=== PATIENT | female | born 1980 | race Caucasian/White ===

== ENCOUNTER 2018-03-10 17:31 | Emergency (ER) | payer OTHER ==
[~2018-03-10] VITALS: Ht 162.6 cm; Wt 59.0 kg
[2018-03-10 17:40] VITALS: BP 95/67
--- NOTE | 2018-03-10 18:26 | PHYS DOC ---
Past History Past Medical History: No Pertinent History Past Medical History Long-standing left knee pain with a previous injection of an annual injectable in her knee approximately June 2017 Past Surgical History: No Surgical History Smoking: Non-smoker Alcohol Use: None Drug Use: None Adult General Chief Complaint Chief Complaint: HIP PAIN HPI HPI Patient is a 37 year old female who presents with [left hip pain. This was noted on waking this morning. Patient denies any trauma. Reports that it is on the lateral and superior aspect of her left hip region. Patient is able to ambulate with a limp. This does make it worse. Patient reports the pain is moderate in intensity. Patient took a meloxicam this morning for the pain without any significant change in the pain. Patient denies any recent changes in activity, no increased running cycling or other related activities. 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 There is no weakness, numbness, or tingling. No recent changes in her knee pain.] Review of Systems Review of Systems Constitutional: Denies fever or chills [] Eyes: Denies change in visual acuity, redness, or eye pain [] HENT: Denies nasal congestion or sore throat [] Respiratory: Denies cough or shortness of breath [] Cardiovascular: No chest pain or palpitations[] GI: Denies abdominal pain, nausea, vomiting, bloody stools or diarrhea [] : Denies dysuria or hematuria [] Musculoskeletal: Denies back pain. See history of present illness [] Integument: Denies rash or skin lesions [] Neurologic: Denies headache, focal weakness or sensory changes [] Endocrine: Denies polyuria or polydipsia [] All other systems were reviewed and found to be within normal limits, except as documented in this note. Current Medications Current Medications Current Medications Medications (Trade) Dose Ordered Sig/[facility] Start Time Stop Time Status Last Admin Dose Admin Ketorolac Tromethamine (Toradol 15mg Vial) 15 mg 1X ONCE 03/10/18 18:30 03/10/18 18:31 UNV Physical Exam Physical Exam Constitutional: Well developed, well nourished, no acute distress, non-toxic appearance. [] HENT: Normocephalic, atraumatic, bilateral external ears normal, oropharynx moist, no oral exudates, nose normal. [] Eyes: PERRLA, EOMI, conjunctiva normal, no discharge. [] Neck: Normal range of motion, no tenderness, supple, no stridor. [] Cardiovascular:Heart rate regular rhythm, no murmur [] Lungs & Thorax: Bilateral breath sounds clear to auscultation [] Abdomen: Bowel sounds normal, soft, no tenderness, no masses, no pulsatile masses. [] Skin: Warm, dry, no erythema, no rash. [] Back: No tenderness, no CVA tenderness. Normal gait, patient is tender lateral to the SI joint. Full active range of motion of the hip. Increased pain with abduction at the hip. Strength is 5 out of 5, patient is distal neurovascularly intact. Knee was also evaluated and showed no laxity, no effusion, full active range of motion of the knee.[] Extremities: No tenderness, no cyanosis, no clubbing, ROM intact, no edema. [] Neurologic: Alert and oriented X 3, normal motor function, normal sensory function, no focal deficits noted. [] Psychologic: Affect normal, judgement normal, mood normal. [] Current Patient Data Vital Signs Vital Signs Date Time Temp Pulse Resp B/P (MAP) Pulse Ox O2 Delivery O2 Flow Rate FiO2 03/10/18 17:40 99.0 80 18 100 Room Air EKG EKG [] Radiology/Procedures Radiology/Procedures X-ray of the left hip and pelvis shows no acute fracture, no dislocation, no widening of the joint space.[] Course & Med Decision Making Course & Med Decision Making Pertinent Labs and Imaging studies reviewed. (See chart for details) [Decision making: No evidence of fracture or dislocation. No evidence of blood clot. This seems to be more of a muscular issue. No evidence of cauda equina syndrome. Will address this with nonsteroidal anti-inflammatory medication. As well as some muscle relaxants. ED course: Patient arrived, was placed in bed, tolerate exam well. Patient struck his return from x-ray with any consultations. Patient reported mild pain improvement with the nonsteroidal anti-inflammatory medication administered. Patient was discharged in improved condition.] Dragon Disclaimer Dragon Disclaimer This electronic medical record was generated, in whole or in part, using a voice recognition dictation system. Departure Departure: Impression: Primary Impression: Left hip pain Disposition: HOME, SELF-CARE Condition: GOOD Referrals: YE MACHADO PA-C (PCP) Patient Instructions: Hip Injury Additional Instructions: Follow-up with your regular doctor. Run, ruck, road [place], at own pace and distance for 48 hours. Return to the ER if worsening pain, weakness, or any other concerns. Scripts Orphenadrine Citrate (ORPHENADRINE CITRATE) 100 Mg Tablet.er 1 TAB PO BID, #30 TAB 1 Refill Prov: HARPREET HOLDEN DO 03/10/18 Oxaprozin (DAYPRO) 600 Mg Tablet 1 TAB PO BID, #30 TAB Prov: HARPREET HOLDEN DO 03/10/18 HARPREET HOLDEN DO Mar 10, 2018 18:26
[2018-03-10] MEDS ORDERED: KETOROLAC 15 MG/ML VIAL. IM ONE (18:30)
[2018-03-10 18:40] LABS: BACTERIA,URINE MANY /HPF (0-FEW); BILIRUBIN,URINE NEG (NEG); CLARITY,URINE CLOUDY; COLOR,URINE YELLOW; GLUCOSE,URINE NEG (NEG); NITRITE,URINE NEG (NEG); RBC,URINE 0 /HPF (0-2); SQUAMOUS EPITHELIAL CELL,UR MANY /LPF; UROBILINOGEN,URINE 1 mg/dL (0.2 mg/dL)
[2018-03-10] MEDS ORDERED: OXAP600T PO (19:21)
[2018-03-10] MEDS ORDERED: ORPH-16 PO (19:21)
--- NOTE | 2018-03-10 23:52 | RAD ---
Indication: Left hip and pelvic pain. No injury. Technique: AP pelvis and 2 views of the left hip COMPARISON: None FINDINGS: The hip joint is symmetric bilaterally. No acute fractures or dislocation. No soft tissue abnormality. SI joints within normal limits. IMPRESSION: No acute findings. Electronically signed by: Chilo Guaman DO (03/10/2018 11:48 PM) [facility]
== END 2018-03-10 19:35 | disposition home or self-care (01) ==
LOC: ER 17:31
DX: M25.552 Pain in left hip (principal)
CPT/HCPCS: 73502; 81001; 81025; 87086; 96372; 99285; J1885